=== PATIENT | male | born 1990 | race African-American/Black ===

== ENCOUNTER 2016-07-08 11:31 | Emergency (ER) | payer BC, OTHER ==
[~2016-07-08] VITALS: Ht 167.6 cm; Wt 98.9 kg
[2016-07-08 11:43] VITALS: BP 120/85; PULSE 85; RESP 16; TEMP 98; O2SAT 99
[2016-07-08] MEDS ORDERED: cefTRIAXone 250 MG in LIDOCAINE 1%, 20 ML MDV 0.9 ML IM ONE (11:45)
[2016-07-08] MEDS ORDERED: AZITHROMYCIN 250 MG TABLET PO ONE (11:45)
--- NOTE | 2016-07-08 11:45 | NUR ---
AMBULATED TO BED 4
--- NOTE | 2016-07-08 11:50 | NUR ---
Pt brought by self, A&Ox4, pt c/o genital burning and yellow discharge, pt states (I think I have chlamidia again), skin pink and warm, denies bleeding, VSS.
--- NOTE | 2016-07-08 11:50 | NUR ---
Dr Macias at bedside examining patient
[2016-07-08 12:29] VITALS: BP 120/85; PULSE 85; RESP 16; TEMP 98; O2SAT 99
--- NOTE | 2016-07-08 12:30 | NUR ---
Patient given written and verbal discharge instructions and verbalizes understanding. ER MD discussed with patient the results and treatment provided. Patient in stable condition. ID arm band removed. Patient educated on pain management and to follow up with PMD. Pain Scale 0/10 . Opportunity for questions provided and answered.
[2016-07-08 12:56] LABS: BILIRUBIN,URINE NEGATIVE (NEGATIVE); CLARITY/URINE SL HAZY (CLEAR); COLOR,URINE YELLOW (YELLOW); GLUCOSE,URINE NEGATIVE (NEGATIVE); KETONES,URINE NEGATIVE (NEGATIVE); LEUKOCYTE ESTERASE ,URINE TRACE (NEGATIVE); NITRITE, URINE NEGATIVE (NEGATIVE); PROTEIN URINE NEGATIVE (NEGATIVE); UROBILINOGEN,URINE 0.2 (0.2-1.0)
[2016-07-08 12:58] LABS: BLOOD, URINE TRACE (NEGATIVE)
[2016-07-08 13:15] LABS: BACTERIA,URINE FEW /HPF (None Seen); WBC,URINE 20-50 /HPF (0-3)
[2016-07-08 13:16] LABS: MUCUS,URINE 1+ /LPF (None Seen)
[2016-07-10 01:17] LABS: CHLAMYDIA TRACHOMATIS NAA Negative (Negative)
[2016-07-10 11:19] LABS: NEISSERIA GONORRHOEAE NAA Positive (Negative)
--- NOTE | 2016-07-11 07:34 | NUR ---
Pt called and informed of positive N. Gonorrhoeae results. Explained that he was treated appropriately in ED, verbalized understanding.
== END 2016-07-08 12:29 | disposition home or self-care (01) ==
LOC: SED 11:31
DX: R30.0 Dysuria (principal); R36.9 Urethral discharge, unspecified; I10 Essential (primary) hypertension
CPT/HCPCS: 81000; 87086; 87491; 87591; 96372; 99284; J0696; J2001; Q0144

== ENCOUNTER 2016-09-06 19:55 | Emergency (ER) | payer BC ==
[2016-09-06 20:00] VITALS: BP_SYST 139
--- NOTE | 2016-09-06 22:24 | NUR ---
Patient placed to bed for evaluation. Side rails up. Report recieved from Maylin SALGADO. Will assume care.
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
--- NOTE | 2016-09-06 22:40 | NUR ---
ED MD Peak at bedside for medical evaluation.
--- NOTE | 2016-09-06 23:30 | NUR ---
assumed care. pt sitting in chair on hallway at this time.
[2016-09-07 00:10] VITALS: BP_SYST 136
--- NOTE | 2016-09-07 00:11 | NUR ---
Patient given written and verbal discharge instructions and verbalizes understanding. ER MD DR MCGILL discussed with patient the results and treatment provided. Patient in stable condition. ID arm band removed. Rx of TYLENOL NO3 given. Patient educated on pain management and to follow up with PMD. Pain Scale . Opportunity for questions provided and answered.
== END 2016-09-07 00:25 | disposition home or self-care (01) ==
LOC: SED 19:55
DX: S29.012A Strain of muscle and tendon of back wall of thorax, initial encounter (principal); I10 Essential (primary) hypertension; V49.40XA Driver injured in collision with unspecified motor vehicles in traffic accident, initial encounter; W22.10XA Striking against or struck by unspecified automobile airbag, initial encounter; Y93.89 Activity, other specified; Y92.89 Other specified places as the place of occurrence of the external cause; Y99.2 Volunteer activity
CPT/HCPCS: 72072-TC; 99284